=== PATIENT | female | born 1960 | race Caucasian/White ===

== ENCOUNTER → 2020-11-18 15:30 | Outpatient (CLI) | payer OTHER, SELFPAY ==
--- NOTE | ~2020-11-18 | MM_ITS ---
EXAMINATION: MM screening [facility] BI w ken HISTORY: Screening mammogram TECHNIQUE: Craniocaudal and mediolateral oblique 3-D tomosynthesis images were obtained and synthetic 2-D images were generated. CAD analysis was submitted and interpreted. COMPARISON: 10/19/2019, 09/04/2018, 07/25/2017 bilateral digital screening mammogram examinations BREAST PARENCHYMAL COMPOSITION: There are scattered areas of fibroglandular density. FINDINGS: There is no evidence of suspicious mass, calcification, or architectural distortion to sugg est malignancy in either breast. There has been no suspicious interval change. IMPRESSION: 1. No mammographic evidence of malignancy. 2. Recommend routine screening mammography in one year. BI-RADS Category 1: Negative Reviewed, dictated and finalized at location A. [employer]
== END ==
PROVIDERS: Visit Provider Student in an Organized Health Care Education/Training Program
DX: Z12.31 Encounter for screening mammogram for malignant neoplasm of breast (principal)
CPT/HCPCS: 77063; 77067

== ENCOUNTER → 2021-04-07 03:42 | Outpatient (CLI) | payer OTHER, SELFPAY ==
[2021-04-07 18:46] LABS: SARS-CoV-2 RNA PCR Negative
== END ==
PROVIDERS: PCP Student in an Organized Health Care Education/Training Program; Visit Provider Internal Medicine Gastroenterology
DX: Z01.812 Encounter for preprocedural laboratory examination (principal); Z20.822 Contact with and (suspected) exposure to COVID-19
CPT/HCPCS: C9803; U0003; U0005

== ENCOUNTER 2021-04-10 01:02 | Day surgery (SDC) | payer OTHER, SELFPAY ==
[2021-03-28 16:10] VITALS: BMI 34.5
[2021-04-10 09:41] VITALS: BP 130/80; PULSE 88; RESP 18; TEMP 35.8; O2SAT 98
[2021-04-10] MEDS: LACTATED RINGERS 1,000 ML 150 ML IV CONT (09:46)
--- NOTE | 2021-04-10 10:20 | WPDGICN ---
Assessment and Plan Assessment and plan (1) Family history of colonic polyps: Code(s): Z83.71 - Family history of colonic polyps Status: Acute Assessment and Plan: Patient's father has had colon polyps. For this reason screening colonoscopy is recommended, and should be considered 5 year intervals in the future. GI Consult Note Consult date/time: 04/10/21 10:20 HPI: Raghav Hope is a 60 year old female Seen in evaluation at the request of Dr. Ballard. Patient presents for screening colonoscopy. Patient reports that her current weight appetite bowel movements are normal. She denies abdominal pain she has had no bleeding. Patient's family history is significant that her father has had colon polyps. Patient did have a previous colonoscopy that was unremarkable several years ago. Patient denies abdominal pain. She has had no bleeding. Review of Systems Review of Systems: All systems reviewed & are unremarkable except as noted in HPI and below PMFSH Past Medical History Medical History (Updated 04/10/21 @ 10:22 by Carlos Estevez MD) Cholecystectomy planned Had appendix removed: 1981 Chronic pain Dizziness Fibromyalgia Hypertension Hypothyroidism Myositis on muscle biopsy 2012, 2014, 2016 Surgical History Surgical History (System 09/03/19 @ 14:36 by Deyanira Mariano) History of ankle surgery 2006 and 2018 Previous section 1986, 1989 Family History Family History (System 09/03/19 @ 14:36 by Deyanira Mariano) Father Family history of pancreatic cancer Depression Hypertension Family history of elevated blood lipids Sibling Family history of mental disorder Hypertension Depression Mother Hypertension Family history of elevated blood lipids Family history of arthritis Family history of osteoporosis Other Asthma Family history of allergic disorder Family history of malignant neoplasm of breast Social History Social History (System 09/03/19 @ 14:36 by Deyanira Mariano) Smoking status: Never smoker Alcohol intake: never Substance use: never Living arrangements: with family Spiritual care concerns: No Meds Home Medications and Allergies Home Medications Medication Instructions Recorded Confirmed Type celecoxib 200 mg capsule 200 mg PO DAILY #90 cap 08/24/19 03/28/21 Rx coenzyme Q10 200 mg capsule 200 mg PO DAILY #90 cap 08/24/19 03/28/21 Rx duloxetine 60 mg capsule,delayed 60 mg PO DAILY #90 cap 08/24/19 03/28/21 Rx release omega 9-nvt-edc-fish oil 60 mg-90 1 cap PO DAILY #90 cap 08/24/19 03/28/21 Rx mg-500 mg capsule pregabalin 75 mg capsule 75 mg PO TID 08/24/19 03/28/21 History folic acid 1 mg tablet 1 mg PO DAILY #90 tablet 04/27/20 03/28/21 Rx furosemide 20 mg tablet 20 mg PO QAM #90 tablet 07/06/20 03/28/21 Rx levothyroxine 50 mcg tablet 50 mcg PO DAILY #90 tablet 10/20/20 03/28/21 Rx potassium chloride 10 mEq 10 meq PO DAILY #90 cap 10/20/20 03/28/21 Rx capsule,extended release calcium carbonate-vitamin D3 2 cap PO DAILY 03/28/21 03/28/21 History [Calcium 600 + D(3)] cyclobenzaprine 10 mg PO HS 03/28/21 03/28/21 History esomeprazole magnesium [Nexium] 40 mg PO DAILY 03/28/21 03/28/21 History evolocumab [Repatha SureClick] 140 mg SUBCUT [id number] 03/28/21 03/28/21 History fiber [Fiber Choice] 2 tablet PO DAILY 03/28/21 03/28/21 History lactobacillus combination no.4 3,000 mmu cells PO DAILY 03/28/21 03/28/21 History [Probiotic] lifitegrast [Xiidra] 1 drp EACH EYE BID 03/28/21 03/28/21 History losartan 100 mg PO DAILY 03/28/21 03/28/21 History multivitamin 1 tablet PO DAILY 03/28/21 03/28/21 History mycophenolate mofetil 500 mg PO DAILY 03/28/21 03/28/21 History sodium,potassium,mag sulfates 17.5 See Rx Instructions PO .COMPLEX 03/28/21 03/28/21 Rx gram-3.13 gram-1.6 gram oral soln #354 ml tramadol 50 - 100 mg PO Q6H 03/28/21 03/28/21 History Allergies Allergy/AdvReac Type Severity Reaction
--- NOTE | 2021-04-10 10:30 | WPDANESEPPF ---
Anes - Initial Pre Proc Eval Procedure: Operation Date: 04/10/21 10:30 Proposed Procedures p Screening Colonoscopy - Carlos Estevez MD Date/Time: 04/10/21 10:30 Surgeon: Carlos Estevez MD Pre Op Diagnosis: family hx of colon polyps Patient Data Age: 60 Gender: F Height: 1.7 m Weight: 96 kg Last Vital Signs Temp 96.5 F L 04/10/21 09:41 Pulse 88 04/10/21 09:41 Resp 18 04/10/21 09:41 BP 130/80 04/10/21 09:41 Pulse Ox 98 04/10/21 09:41 Allergies Allergy/AdvReac Type Severity Reaction Status Date / Time lisinopril Allergy Unknown Unknown Verified 04/10/21 09:40 codeine AdvReac Unknown Hallucinati Verified 04/10/21 09:40 ng Home Medications Medication Instructions Recorded Confirmed Type celecoxib 200 mg capsule 200 mg PO DAILY #90 cap 08/24/19 03/28/21 Rx coenzyme Q10 200 mg capsule 200 mg PO DAILY #90 cap 08/24/19 03/28/21 Rx duloxetine 60 mg capsule,delayed 60 mg PO DAILY #90 cap 08/24/19 03/28/21 Rx release omega 5-gkr-deq-fish oil 60 mg-90 1 cap PO DAILY #90 cap 08/24/19 03/28/21 Rx mg-500 mg capsule pregabalin 75 mg capsule 75 mg PO TID 08/24/19 03/28/21 History folic acid 1 mg tablet 1 mg PO DAILY #90 tablet 04/27/20 03/28/21 Rx furosemide 20 mg tablet 20 mg PO QAM #90 tablet 07/06/20 03/28/21 Rx levothyroxine 50 mcg tablet 50 mcg PO DAILY #90 tablet 10/20/20 03/28/21 Rx potassium chloride 10 mEq 10 meq PO DAILY #90 cap 10/20/20 03/28/21 Rx capsule,extended release calcium carbonate-vitamin D3 2 cap PO DAILY 03/28/21 03/28/21 History [Calcium 600 + D(3)] cyclobenzaprine 10 mg PO HS 03/28/21 03/28/21 History esomeprazole magnesium [Nexium] 40 mg PO DAILY 03/28/21 03/28/21 History evolocumab [Repatha SureClick] 140 mg SUBCUT [id number] 03/28/21 03/28/21 History fiber [Fiber Choice] 2 tablet PO DAILY 03/28/21 03/28/21 History lactobacillus combination no.4 3,000 mmu cells PO DAILY 03/28/21 03/28/21 History [Probiotic] lifitegrast [Xiidra] 1 drp EACH EYE BID 03/28/21 03/28/21 History losartan 100 mg PO DAILY 03/28/21 03/28/21 History multivitamin 1 tablet PO DAILY 03/28/21 03/28/21 History mycophenolate mofetil 500 mg PO DAILY 03/28/21 03/28/21 History sodium,potassium,mag sulfates 17.5 See Rx Instructions PO .COMPLEX 03/28/21 03/28/21 Rx gram-3.13 gram-1.6 gram oral soln #354 ml tramadol 50 - 100 mg PO Q6H 03/28/21 03/28/21 History Patient hx anesthesia problems: none Family hx anesthesia problems: none PMFSH Past Medical History Medical History (Updated 04/10/21 @ 10:22 by Carlos Estevez MD) Cholecystectomy planned Had appendix removed: 1981 Chronic pain Dizziness Fibromyalgia Hypertension Hypothyroidism Myositis on muscle biopsy 2012, 2015, 2016 Surgical History Surgical History (System 09/03/19 @ 14:36 by Deyanira Mariano) History of ankle surgery 2006 and 2019 Previous section 1986, 1989 Family History Family History (System 09/03/19 @ 14:36 by Deyanira Mariano) Father Family history of pancreatic cancer Depression Hypertension Family history of elevated blood lipids Sibling Family history of mental disorder Hypertension Depression Mother Hypertension Family history of elevated blood lipids Family history of arthritis Family history of osteoporosis Other Asthma Family history of allergic disorder Family history of malignant neoplasm of breast Social History Social History (System 09/03/19 @ 14:36 by Deyanira Mariano) Smoking status: Never smoker Alcohol intake: never Substance use: never Living arrangements: with family Spiritual care concerns: No Anes - Eval Final PreProcedure Day of Procedure 04/10/21 10:30 Patient weight: obese Heart: regular rate and rhythm Lungs: clear to auscultation Airway: Mallampati scale class II Neurological: alert and oriented Last oral intake: >/= 8 hours ASA classification: III Emergent: no Anesthetic plan: proceed Anesthesia typ
[2021-04-10 11:10] VITALS: BP 107/68; PULSE 73; RESP 18; O2SAT 97
[2021-04-10 11:20] VITALS: BP 124/74; PULSE 77; RESP 18; O2SAT 100
[2021-04-10 11:28] VITALS: BP 117/68; PULSE 76; RESP 18; O2SAT 100
== END 2021-04-10 11:37 | disposition home or self-care (01) ==
PROVIDERS: PCP Student in an Organized Health Care Education/Training Program; Visit Provider Internal Medicine Gastroenterology
PROC: 0DJD8ZZ Inspection of Lower Intestinal Tract, Via Natural or Artificial Opening Endoscopic (ICD-10-PCS; CPT 45378; principal; 2021-04-10 10:30)
DX: Z12.11 Encounter for screening for malignant neoplasm of colon (principal); Z83.71 Family history of colonic polyps; K64.8 Other hemorrhoids; R42 Dizziness and giddiness; I10 Essential (primary) hypertension; M79.7 Fibromyalgia; E03.9 Hypothyroidism, unspecified; E66.9 Obesity, unspecified; Z68.33 Body mass index [BMI] 33.0-33.9, adult; Z79.01 Long term (current) use of anticoagulants; Z90.49 Acquired absence of other specified parts of digestive tract
CPT/HCPCS: 45378; C9803; J2704; J7120; U0003; U0005

== ENCOUNTER → 2021-05-23 07:01 | Outpatient (CLI) | payer OTHER, SELFPAY ==
[2021-05-23 18:17] LABS: SARS-CoV-2 RNA PCR Negative
== END ==
PROVIDERS: PCP Student in an Organized Health Care Education/Training Program; Visit Provider Student in an Organized Health Care Education/Training Program
DX: R68.89 Other general symptoms and signs (principal); Z20.822 Contact with and (suspected) exposure to COVID-19
CPT/HCPCS: C9803; U0003; U0005

== ENCOUNTER → 2022-01-04 12:55 | Outpatient (CLI) | payer OTHER, MEDICARE, SELFPAY ==
--- NOTE | ~2022-01-04 | MM_ITS ---
EXAMINATION: MM screening [facility] BI w ken HISTORY: Screening mammogram TECHNIQUE: Craniocaudal and mediolateral oblique 3-D tomosynthesis images were obtained and synthetic 2-D images were generated. CAD analysis was submitted and interpreted. COMPARISON: 11/18/2020, 10/19/2019, 09/04/2018 BREAST PARENCHYMAL COMPOSITION: There are scattered areas of fibroglandular density. FINDINGS: There is no suspicious mass, calcification, or architectural distortion to suggest malignan cy in either breast. There has been no suspicious interval change. IMPRESSION: 1. No mammographic evidence of malignancy. 2. Recommend routine screening mammography in one year. BI-RADS Category 1: Negative Reviewed, dictated and finalized at location A.
== END ==
PROVIDERS: PCP Student in an Organized Health Care Education/Training Program; Visit Provider Nurse Practitioner
DX: Z12.31 Encounter for screening mammogram for malignant neoplasm of breast (principal)
CPT/HCPCS: 77063; 77067

== ENCOUNTER → 2023-07-05 10:14 | Outpatient (CLI) | payer OTHER, MEDICARE, SELFPAY ==
--- NOTE | ~2023-07-05 | US_ITS ---
EXAMINATION: US thyroid DATE: 07/05/2023 10:35 INDICATION: Nontoxic multinodular goiter. TECHNIQUE: Multiple ultrasound images of the thyroid were obtained. COMPARISON: None. FINDINGS: The right thyroid lobe measures 4.0 x 1.1 x 1.5 cm. The left thyroid lobe measures 4.5 x 2.1 x 2.4 c m. In the left thyroid lobe, there is a 3.3 cm mixed cystic and solid, isoechoic, wider than tall no dule with ill-defined margin without echogenic foci (TI-RADS TR2). In the right thyroid lobe, there i s a 9 mm solid, hypoechoic, wider than tall nodule with smooth margin without echogenic foci (TR4). IMPRESSION: 1. Thyroid nodules, likely not clinically significant. No follow-up is needed. Reviewed, dictated and finalized at location A.
== END ==
PROVIDERS: PCP Nurse Practitioner; Visit Provider Otolaryngology
DX: E04.2 Nontoxic multinodular goiter (principal)
CPT/HCPCS: 76536